=== PATIENT | male | born 1955 | race African-American/Black ===

== ENCOUNTER 2017-08-31 10:19 | Inpatient (IN) | payer MEDICAID ==
[~2017-08-31] VITALS: Ht 177.8 cm; Wt 86.2 kg
[2017-08-31 10:19] VITALS: BP 146/69
[~2017-08-31 10:19] MED LIST: ABILIFY2 MG ORAL; ALBUTEROL2.5 MG/3 M INH; ASPIR 8181 MG ORAL; ATORVASTATIN CA10 MG ORAL; METOPROLOL TART25 MG ORAL
--- NOTE | 2017-08-31 10:26 | Emergency Room Report ---
History of Present Illness General Chief Complaint: Abdominal Pain Source: Patient, Medical Record Present Illness HPI Patient is a 62-year-old male presented after increased low normal pain. Patient gradual onset of symptoms. He reportedly was having onset of pain with associated hematemesis. Patient states he previously had been taking for tonics. He had recently finished antibiotics for urinary infection. He reports having sharp pain to the left lower abdomen. The patient states that he takes aspirin for a prior DVT in his leg. Allergies: Coded Allergies: No Known Allergies (Unverified , 08/31/17) Patient History Past Medical History: see triage record Reviewed Nursing Documentation: PMH: Agreed, PSxH: Agreed Nursing Documentation-PMH Past Medical History: No History, Except For Hx Hypertension: Yes Hx Asthma: Yes History Of Psychiatric Problem: Yes - anxiety Review of Systems All Other Systems: negative except mentioned in HPI Physical Exam Vital Signs Date Time Temp Pulse Resp B/P (MAP) Pulse Ox O2 Delivery O2 Flow Rate FiO2 08/31/17 10:11 98.4 74 18 131/76 98 Room Air Sp02 EP Interpretation: reviewed, normal General Appearance: normal inspection, well appearing, no apparent distress, alert, GCS 15 Head: atraumatic ENT: normal ENT inspection, hearing grossly normal, normal voice Neck: normal inspection, full range of motion, supple, no bony tend Respiratory: normal inspection, lungs clear, normal breath sounds, no respiratory distress, no retraction, no wheezing Cardiovascular #1: regular rate, rhythm, no edema Gastrointestinal: normal inspection, normal bowel sounds, soft, no guarding, no hernia, tenderness - left lower quadrant Genitourinary: no CVA tenderness Musculoskeletal: normal inspection, back normal, normal range of motion Neurologic: normal inspection, alert, oriented x3, responsive, developmental writing instructor III-XII nml as tested, speech normal Psychiatric: normal inspection, judgement/insight normal, mood/affect normal Skin: normal inspection, normal color, no rash Medical Decision Making Diagnostic Impression: Primary Impression: Abdominal pain Additional Impressions: Substance abuse Hematemesis Bilateral inguinal hernia ER Course Patient presented for abdominal pain. Differential diagnoses included ischemic bowel, appendicitis, perforated viscus, abdominal aortic aneurysm, inferior myocardial infarction, viral gastroenteritis Because of complexity of patient's case laboratory testing and imaging studies were ordered.I laboratory testing was unremarkable. Patient was given IV Protonix as well as IV Ativan. A urine drug screen was positive for cocaine. The patient was discussed with Dr. Franky Marie who is covering for Dr. Carrillo for inpatient management.A CT abdomen pelvis read by radiology and small hiatal hernia gallbladder and spleen are unremarkable there were small inguinal hernias containing only fat Labs Test 08/31/17 09:45 08/31/17 10:20 Urine Color Yellow Urine Appearance Clear Urine pH 6 (4.5-8.0) Urine Specific [place] 1.020 (1.005-1.035) Urine Protein 1+ (NEGATIVE) Urine Glucose (UA) Negative (NEGATIVE) Urine Ketones 1+ (NEGATIVE) Urine Occult Blood 1+ (NEGATIVE) Urine Nitrite Negative (NEGATIVE) Urine Bilirubin Negative (NEGATIVE) Urine Urobilinogen Normal MG/DL (0.0-1.0) Urine Leukocyte Esterase Negative (NEGATIVE) Urine RBC 2-4 /HPF (0 - 0) Urine WBC 0-2 /HPF (0 - 0) Urine Squamous Epithelial Cells Occasional /LPF Urine Bacteria Occasional /HPF (NONE) Urine Opiates Screen Negative (NEGATIVE) Urine Barbiturates Screen Negative (NEGATIVE) Phencyclidine (PCP) Screen Negative (NEGATIVE) Urine Amphetamines Screen Negative (NEGATIVE) Urine Benzodiazepines Screen Negative (NEGATIVE) Urine Cocaine Screen Positive (NEGATIVE) Urine Marijuana (THC) Screen Negative (NEGATIVE) White Blood Count 11.0 K/UL (4.8-10.8) Red Blood Count 5.24 M/UL (4.70-6.10) Hemoglobin 16.4 G/DL (14.2-18.0) Hematocrit 47.7 % (42.0-52.0) Mean Corpuscular Volume 91 FL (80-99) Mean Corpuscular Hemoglobin 31.3 PG (27.0-31.0) Mean Corpuscular Hemoglobin Concent 34.4 G/DL (32.0-36.0) Red Cell Distribution Width 11.6 % (11.6-14.8) Platelet Count 195 K/UL (150-450) Mean Platelet Volume 7.3 FL (6.5-10.1) Neutrophils (%) (Auto) 82.4 % (45.0-75.0) Lymphocytes (%) (Auto) 9.8 % (20.0-45.0) Monocytes (%) (Auto) 6.6 % (1.0-10.0) Eosinophils (%) (Auto) 0.1 % (0.0-3.0) Basophils (%) (Auto) 1.2 % (0.0-2.0) Prothrombin Time 10.6 SEC (9.30-11.50) Prothromb Time International Ratio 1.0 (0.9-1.1) Activated Partial Thromboplast Time 23 SEC (23-33) Sodium Level 146 MMOL/L (136-145) Potassium Level 3.8 MMOL/L (3.5-5.1) Chloride Level 109 MMOL/L (98-107) Carbon Dioxide Level 23 MMOL/L (21-32) Anion Gap 14 mmol/L (5-15) Blood Urea Nitrogen 12 mg/dL (7-18) Creatinine 1.3 MG/DL (0.55-1.30) Estimat Glomerular Filtration Rate 55.6 mL/min (>60) Glucose Level 96 MG/DL (74-106) Calcium Level 10.0 MG/DL (8.5-10.1) Total Bilirubin 0.6 MG/DL (0.2-1.0) Aspartate Amino Transf (AST/SGOT) 23 U/L (15-37) Alanine Aminotransferase (ALT/SGPT) 26 U/L (12-78) Alkaline Phosphatase 65 U/L (46-116) Troponin I 0.010 ng/mL (0.000-0.056) Total Protein 8.4 G/DL (6.4-8.2) Albumin 4.5 G/DL (3.4-5.0) Globulin 3.9 g/dL Albumin/Globulin Ratio 1.2 (1.0-2.7) Lipase 109 U/L (73-393) EKG Diagnostic Results Rate: tachycardiac Rhythm: NSR ST Segments: no acute changes ASA given to the pt in ED: No Rhythm Strip Diag. Results EP Interpretation: yes Rhythm: NSR, no PVC's, no ectopy Last Vital Signs Date Time Temp Pulse Resp B/P (MAP) Pulse Ox O2 Delivery O2 Flow Rate FiO2 08/31/17 10:19 91 20 146/69 100 Room Air 08/31/17 10:11 98.4 Status: unchanged Disposition: ADMITTED INPATIENT Condition: Serious Jameel Bridges Aug 31, 2017 10:26
[2017-08-31] MEDS ORDERED: Pantoprazole Inj IV ONE (10:30)
[2017-08-31 10:50] LABS: ANION GAP 14 mmol/L (5-15); CARBON DIOXIDE 23 MMOL/L (21-32); CHLORIDE 109 MMOL/L (98-107); CREATININE 1.3 MG/DL (0.55-1.30); GLOMERULAR FILTRATION RATE 55.6 mL/min (>60); POTASSIUM 3.8 MMOL/L (3.5-5.1); SODIUM 146 MMOL/L (136-145)
[2017-08-31 10:51] LABS: BASOPHILS % (AUTO) 1.2 % (0.0-2.0); EOSINOPHILS % (AUTO) 0.1 % (0.0-3.0); LYMPHOCYTES % (AUTO) 9.8 % (20.0-45.0); MEAN CORPUSCULAR HEMOGLOBIN 31.3 PG (27.0-31.0); MEAN CORPUSCULAR HGB CONC 34.4 G/DL (32.0-36.0); MEAN CORPUSCULAR VOLUME 91 FL (80-99); MEAN PLATELET VOLUME 7.3 FL (6.5-10.1); MONOCYTES % (AUTO) 6.6 % (1.0-10.0); NEUTROPHILS % (AUTO) 82.4 % (45.0-75.0); PLATELET COUNT 195 K/UL (150-450); RED BLOOD COUNT 5.24 M/UL (4.70-6.10); RED CELL DISTRIBUTION WIDTH 11.6 % (11.6-14.8)
[2017-08-31 10:52] LABS: APPEARANCE,URINE CLEAR; KETONES,URINE 1+ (NEGATIVE); LEUKOCYTE ESTERASE ,URINE NEGATIVE (NEGATIVE); NITRITE,URINE NEGATIVE (NEGATIVE); PH,URINE 6 (4.5-8.0); PROTEIN,URINE 1+ (NEGATIVE); UROBILINOGEN,URINE NORMAL MG/DL (0.0-1.0)
[2017-08-31 10:56] LABS: PROTHROMBIN TIME 10.6 SEC (9.30-11.50)
[2017-08-31 10:57] LABS: ALANINE AMINOTRANSFERASE 26 U/L (12-78); ALBUMIN/GLOBULIN RATIO 1.2 (1.0-2.7); ASPARTATE AMINO TRANSFERASE 23 U/L (15-37); LIPASE 109 U/L (73-393); TOTAL PROTEIN 8.4 G/DL (6.4-8.2)
[2017-08-31 11:13] LABS: BACTERIA,URINE OCCASIONAL /HPF; SQUAMOUS EPITHELIAL CELL,UR OCCASIONAL /LPF (NONE/OCC); WBC,URINE 0-2 /HPF (0 - 0)
--- NOTE | 2017-08-31 11:41 | Diagnostic Imaging Report ---
Indication: PAIN Technique: CT scan of the abdomen and pelvis was performed from the diaphragms to the symphysis pubis with intravenous contrast material only per specific request of the ordering physician.. 5 mm sections were generated. Axial, coronal, and sagittal images are presented. Dose: Total Dose Length Product - DLP [address] Dose Index - CTDIvol(s) 13.21 mGy. Automated exposure control was utilized for dose reduction. Comparison: None Findings: There is a small hiatal hernia. The liver is normal. The gallbladder is unremarkable. The spleen is normal. The pancreas is unremarkable. Adrenal glands are normal. The kidneys are unremarkable. Aorta and inferior vena cava are normal caliber. Retroperitoneum is free of adenopathy. The bowel is normal caliber. There is some motion artifact. The appendix is normal. The bladder is unremarkable. Prostate and seminal vesicles are normal. There are small inguinal hernias containing only fat bilaterally. Minimal spurring is noted in the lumbar spine. Impression: Minimal degenerative change of the lumbar spine. Normal appendix. No evidence of urinary calculi. Small hiatal hernia. Otherwise negative. The CT scanner at [facility] is accredited by the [employer] and the scans are performed using protocols designed to limit radiation exposure to as low as reasonably achievable to attain images of sufficient resolution adequate for diagnostic evaluation.
[2017-08-31] MEDS ORDERED: LORazepam Inj 2mg/ml 1ml IV ONE (12:30)
[2017-08-31 14:00] VITALS: BP 109/88
[2017-08-31] MEDS ORDERED: NS 500ML ONE (14:45)
[2017-08-31 15:46] VITALS: BP 127/68
[2017-08-31 16:36] VITALS: BP 124/75
[2017-08-31 20:00] VITALS: BP 112/69
[2017-08-31 20:34] LABS: BASOPHILS % (AUTO) 1.2 % (0.0-2.0); LYMPHOCYTES % (AUTO) 28.5 % (20.0-45.0); MEAN CORPUSCULAR HEMOGLOBIN 31.4 PG (27.0-31.0); MEAN CORPUSCULAR HGB CONC 34.2 G/DL (32.0-36.0); MEAN CORPUSCULAR VOLUME 92 FL (80-99); MEAN PLATELET VOLUME 6.5 FL (6.5-10.1); MONOCYTES % (AUTO) 9.2 % (1.0-10.0); NEUTROPHILS % (AUTO) 59.1 % (45.0-75.0); PLATELET COUNT 144 K/UL (150-450); RED CELL DISTRIBUTION WIDTH 11.7 % (11.6-14.8); WHITE BLOOD COUNT 8.6 K/UL (4.8-10.8)
[2017-09-01] VITALS: BP 128/70
[2017-09-01 04:00] VITALS: BP 124/76
[2017-09-01 04:45] LABS: BASOPHILS % (AUTO) 1.1 % (0.0-2.0); EOSINOPHILS % (AUTO) 3.3 % (0.0-3.0); LYMPHOCYTES % (AUTO) 36.9 % (20.0-45.0); MEAN CORPUSCULAR HEMOGLOBIN 32.5 PG (27.0-31.0); MEAN CORPUSCULAR HGB CONC 35.3 G/DL (32.0-36.0); MEAN CORPUSCULAR VOLUME 92 FL (80-99); MEAN PLATELET VOLUME 7.5 FL (6.5-10.1); MONOCYTES % (AUTO) 9.8 % (1.0-10.0); NEUTROPHILS % (AUTO) 48.9 % (45.0-75.0); PLATELET COUNT 154 K/UL (150-450); RED BLOOD COUNT 4.51 M/UL (4.70-6.10); WHITE BLOOD COUNT 5.7 K/UL (4.8-10.8)
[2017-09-01 08:01] VITALS: BP 123/69
[2017-09-01] MEDS: Pantoprazole Inj IVP SCH (08:45)
[2017-09-01 09:46] LABS: ALANINE AMINOTRANSFERASE 23 U/L (12-78); ALBUMIN/GLOBULIN RATIO 1.2 (1.0-2.7); ANION GAP 9 mmol/L (5-15); ASPARTATE AMINO TRANSFERASE 21 U/L (15-37); CALCIUM 8.7 MG/DL (8.5-10.1); CARBON DIOXIDE 25 MMOL/L (21-32); CHLORIDE 112 MMOL/L (98-107); CREATININE 1.2 MG/DL (0.55-1.30); GLOMERULAR FILTRATION RATE > 60 mL/min (>60); POTASSIUM 3.8 MMOL/L (3.5-5.1); SODIUM 146 MMOL/L (136-145); TOTAL PROTEIN 6.3 G/DL (6.4-8.2)
[2017-09-01 11:28] VITALS: BP 125/74
[2017-09-01 12:19] LABS: BASOPHILS % (AUTO) 1.4 % (0.0-2.0); LYMPHOCYTES % (AUTO) 35.5 % (20.0-45.0); MEAN CORPUSCULAR HEMOGLOBIN 31.9 PG (27.0-31.0); MEAN CORPUSCULAR HGB CONC 34.4 G/DL (32.0-36.0); MEAN CORPUSCULAR VOLUME 93 FL (80-99); MEAN PLATELET VOLUME 6.9 FL (6.5-10.1); MONOCYTES % (AUTO) 8.9 % (1.0-10.0); NEUTROPHILS % (AUTO) 50.2 % (45.0-75.0); PLATELET COUNT 125 K/UL (150-450); RED BLOOD COUNT 4.47 M/UL (4.70-6.10); RED CELL DISTRIBUTION WIDTH 11.9 % (11.6-14.8); WHITE BLOOD COUNT 4.6 K/UL (4.8-10.8)
--- NOTE | 2017-09-01 15:11 | Cardiology Progress Note ---
Assessment/Plan Assessment/Plan marilu mobitz 1 2nd degree hyperlipidemai nause and vomit watch on tele keep off neg chronotropic agenst for nwo tfts anti emetics [id number] Objective Last 24 Hour Vital Signs Date Time Temp Pulse Resp B/P (MAP) Pulse Ox O2 Delivery O2 Flow Rate FiO2 09/01/17 12:00 49 09/01/17 11:28 97.2 51 20 125/74 100 Nasal Cannula 2.0 09/01/17 08:01 97.5 59 20 123/69 100 Nasal Cannula 2.0 09/01/17 08:00 56 09/01/17 04:10 100 Nasal Cannula 2.0 09/01/17 04:02 55 09/01/17 04:00 97.3 54 20 124/76 100 Nasal Cannula 09/01/17 00:05 99 Nasal Cannula 2.0 09/01/17 00:00 97.5 70 20 128/70 Nasal Cannula 08/31/17 23:34 58 08/31/17 20:10 99 Nasal Cannula 2.0 08/31/17 20:00 97.5 66 18 112/69 100 Nasal Cannula 2.0 08/31/17 19:53 48 08/31/17 16:58 56 08/31/17 16:36 97.9 63 20 124/75 97 Room Air 08/31/17 16:00 98.4 60 15 127/68 100 Room Air 08/31/17 15:46 60 15 127/68 100 Room Air Intake and Output 09/01/17 09/02/17 19:00 07:00 Intake Total 1825 ml Output Total 600 ml Balance 1225 ml Intake Oral 1250 ml IV Total 575 ml Output Urine Total 600 ml Laboratory Tests Test 08/31/17 20:15 09/01/17 04:00 09/01/17 12:05 09/01/17 13:30 White Blood Count 8.6 K/UL (4.8-10.8) 5.7 K/UL (4.8-10.8) 4.6 K/UL (4.8-10.8) L Red Blood Count 4.30 M/UL (4.70-6.10) L 4.51 M/UL (4.70-6.10) L 4.47 M/UL (4.70-6.10) L Hemoglobin 13.5 G/DL (14.2-18.0) L 14.7 G/DL (14.2-18.0) 14.3 G/DL (14.2-18.0) Hematocrit 39.4 % (42.0-52.0) L 41.6 % (42.0-52.0) L 41.5 % (42.0-52.0) L Mean Corpuscular Volume 92 FL (80-99) 92 FL (80-99) 93 FL (80-99) Mean Corpuscular Hemoglobin 31.4 PG (27.0-31.0) H 32.5 PG (27.0-31.0) H 31.9 PG (27.0-31.0) H Mean Corpuscular Hemoglobin Concent 34.2 G/DL (32.0-36.0) 35.3 G/DL (32.0-36.0) 34.4 G/DL (32.0-36.0) Red Cell Distribution Width 11.7 % (11.6-14.8) 12.0 % (11.6-14.8) 11.9 % (11.6-14.8) Platelet Count 144 K/UL (150-450) L 154 K/UL (150-450) 125 K/UL (150-450) L Mean Platelet Volume 6.5 FL (6.5-10.1) 7.5 FL (6.5-10.1) 6.9 FL (6.5-10.1) Neutrophils (%) (Auto) 59.1 % (45.0-75.0) 48.9 % (45.0-75.0) 50.2 % (45.0-75.0) Lymphocytes (%) (Auto) 28.5 % (20.0-45.0) 36.9 % (20.0-45.0) 35.5 % (20.0-45.0) Monocytes (%) (Auto) 9.2 % (1.0-10.0) 9.8 % (1.0-10.0) 8.9 % (1.0-10.0) Eosinophils (%) (Auto) 2.0 % (0.0-3.0) 3.3 % (0.0-3.0) H 4.0 % (0.0-3.0) H Basophils (%) (Auto) 1.2 % (0.0-2.0) 1.1 % (0.0-2.0) 1.4 % (0.0-2.0) Sodium Level 146 MMOL/L (136-145) H Potassium Level 3.8 MMOL/L (3.5-5.1) Chloride Level 112 MMOL/L (98-107) H Carbon Dioxide Level 25 MMOL/L (21-32) Anion Gap 9 mmol/L (5-15) Blood Urea Nitrogen 12 mg/dL (7-18) Creatinine 1.2 MG/DL (0.55-1.30) Estimat Glomerular Filtration Rate > 60 mL/min (>60) Glucose Level 74 MG/DL (74-106) Calcium Level 8.7 MG/DL (8.5-10.1) Total Bilirubin 0.5 MG/DL (0.2-1.0) Aspartate Amino Transf (AST/SGOT) 21 U/L (15-37) Alanine Aminotransferase (ALT/SGPT) 23 U/L (12-78) Alkaline Phosphatase 52 U/L (46-116) Total Protein 6.3 G/DL (6.4-8.2) L Albumin 3.5 G/DL (3.4-5.0) Globulin 2.8 g/dL Albumin/Globulin Ratio 1.2 (1.0-2.7) Stool Occult Blood Pending ELLIE CADE Sep 01, 2017 15:11
--- NOTE | 2017-09-01 15:26 | Cardiology Report ---
APPROVED REPORT EXAM: Two-dimensional and M-mode echocardiogram with Doppler and color Doppler. INDICATION 2nd degree heart block M-Mode DIMENSIONS IVSd1.6 (0.7-1.1cm)Left Atrium (MM)3.9 (1.6-4.0cm) LVDd3.9 (3.5-5.6cm)Aortic Root3.3 (2.0-3.7cm) PWd1.3 (0.7-1.1cm)Aortic Cusp Exc.2.0 (1.5-2.0cm) LVDs1.9 (2.5-4.0cm) PWs1.8 cm Technically difficult study due to patients position. Normal left ventricular chamber size, systolic function and wall motion to extent visualized. Left ventricular ejection fraction estimated to be 55-60%. Mild left ventricular hypertrophy. Anterior Echo-free space, may be due to pericardial fat or effusion. All other cardiac chamber sizes are within normal limits. Mild focal aortic valve sclerosis with adequate cusp excursion. Mildly thickened mitral valve leaflets with normal excursion. Mild mitral annulus and aortic root calcification. Normal pulmonic valve structure. Normal tricuspid valve structure. IVC measured at 2.2 cm with physiologic collapse. A color flow and spectral Doppler study was performed and revealed: Trace aortic regurgitation. Trace mitral regurgitation. Mitral diastolic velocities are normal Trace to mild tricuspid regurgitation. Tricuspid systolic velocities suggests peak right ventricular systolic pressure of 33 mmHg. Mild pulmonic regurgitation present.
[2017-09-01 15:37] VITALS: BP 108/69
--- NOTE | 2017-09-01 16:30 | History and Physical Report ---
DATE OF ADMISSION: 08/31/2017 CHIEF COMPLAINT: Hematemesis. HISTORY OF PRESENT ILLNESS: The patient is a 62-year-old male. He has a history of GERD, presented with complaints of vomiting of blood. According to the patient, he had 3 episodes where he vomited small amounts of blood. He presented to the emergency room. On evaluation there, his initial hemoglobin was stable. He was also noted that to be bradycardic, and while on the monitor here, he has had several episodes of secondary heart block type 1. The patient denies prior history of any heart problems. PAST MEDICAL HISTORY: As above. PAST SURGICAL HISTORY: None. CURRENT MEDICATIONS: Reviewed. ALLERGIES: None. FAMILY HISTORY: Significant for prostate and colon problems and diabetes. REVIEW OF SYSTEMS: Negative except for vomiting some blood. PHYSICAL EXAMINATION: VITAL SIGNS: Temperature 97.5 degrees, pulse 60, respirations 20, and blood pressure 123/69. GENERAL: The patient is well-developed, no apparent distress. HEART: Regular rate and rhythm. LUNGS: Lungs are clear. ABDOMEN: Soft, nontender, and nondistended. EXTREMITIES: Without clubbing or cyanosis. LABORATORY DATA: UA was clear. Hemoglobin was initially 16, now 15. Platelets were normal. Coags normal. Sodium 146, and potassium 3.8. Troponin was negative. UA was clear. Tox screen was positive for cocaine. EKG showed secondary heart block type 1. ASSESSMENT: This is a pleasant male admitted with complaints of possible gastrointestinal bleed: 1. Questionable gastrointestinal bleed. Hemoglobin is stable. 2. The patient is a drinker. 3. He has history of gastroesophageal reflux disease, but appears stable. 4. Bradycardia, rule out conduction system disease. PLANS: Monitor on telemetry. Serial CBCs. PPI treatment. Gastrointestinal and Cardiology consultations. We will check stool for occult blood. Franky Marie M.D. DR: CHERELLE JOB#: [id number] CC:
--- NOTE | 2017-09-01 17:15 | Consultation ---
DATE OF CONSULTATION: 09/01/2017 CARDIOLOGY CONSULTATION CONSULTING PHYSICIAN: Dmitry Zhang M.D. REFERRING PHYSICIAN: Franky Marie M.D. This consultation is for Dr. Jacinto Grimaldo who is not available today. HISTORY OF PRESENT ILLNESS: The patient is a 62-year-old gentleman who tells me he was in a restaurant and he started getting nauseated and vomited a couple of times and subsequently developed some lower quadrant abdominal pain and low back pain, and tried to get up after the vomiting and felt woozy and fell down to the floor. Paramedics were summoned. The block and case maker run sheet is now reviewed, indicates that the patient was noted to have initial blood pressure of 138/85 with a heart rate of 105 and subsequently 141/94 with a heart rate of 94. EKG was done, was negative. The patient denied any chest pain. They found him lying on the floor complaining of abdominal pain. No vomiting. He was brought to the emergency room at [facility] and subsequently admitted to the hospital. After hospitalization, he has had some episodes of bradycardia, Mobitz I second-degree, and this consultation requested. He never passed out except for this episode of near syncope after he vomited. He has not had any heart problems, although he is followed by a blind lacer on a regular basis apparently for some reason and nothing abnormal was apparently found. He does have a bit of hyperlipidemia, which he takes medications for and he usually has has some high blood pressure, but he stopped taking medication for that approximately six months ago. Apparently, he is on some kind of a small tablet that he was taking at that time. He does not have any chest pain. He is not short of breath at this time. There is no PND. There is no orthopnea. Usually does not get dizzy or lightheaded when he sits up and stands up. No palpitations. PAST MEDICAL HISTORY: Positive for high cholesterol. He denies any diabetes or high blood pressure. No heart attack. No cancer. No stroke. No hepatitis or tuberculosis. He does have history of asthma. No ulcers. No kidney problems, liver problems, thyroid problems, anemia, arthritis, or HIV. He does have a history of DVT, for which he was on anticoagulation for approximately two years and was discontinued approximately six months ago and has been on aspirin since. He denies any heart problems otherwise. MEDICATIONS: The patient states that he is on following medications. Protonix, Lipitor, aspirin 325 mg, and [place]. He denies taking any metoprolol recently. SOCIAL HISTORY: He used to smoke, drink, and use drugs. He used cocaine a few days ago. He used to smoke one pack of cigarettes per day, now decreased. Alcohol intake, he used to be heavy, now better as well. He is retired. REVIEW OF SYSTEMS: GASTROINTESTINAL: Nausea and vomiting as mentioned. No bloody or black stools. GENITOURINARY: Negative. PULMONARY: Negative. CONSTITUTIONAL: Negative. NEUROLOGIC: Negative. PHYSICAL EXAMINATION: GENERAL: Physical examination shows him to be a middle-aged gentleman, in no respiratory distress. NECK: Supple. No jugular venous distention. LUNGS: Clear to auscultation and percussion. CARDIAC: Regular rate and rhythm. No heaves, thrills, gallops, or rubs are noted. ABDOMEN: Soft and nontender. Positive bowel sounds. EXTREMITIES: There is no clubbing, cyanosis, nor is there any edema. NEUROLOGIC: He is awake, alert, responsive, in no apparent respiratory distress. LABORATORY AND DIAGNOSTIC DATA: White count of 4.6 with a hemoglobin of 14.3 and platelet count of 125. Initially when he came in, he had a hemoglobin of 16.4 and platelet count of 195. Sodium is 146, potassium 3.8, chloride 112, bicarbonate 25, BUN of 12, creatinine 1.2, and glucose of 74. Liver function tests are all normal. Troponin one set was negative. INR is 1. PTT of 23. Urinalysis 2 to 4 RBCs, 0 to 2 WBCs. Toxicology screen positive for cocaine. His blood pressure is anywhere between 109/88 to 146/69, most recently 125/74. His electrocardiogram shows sinus rhythm, normal QRS axis, Mobitz 1 second-degree AV block is noted with occasional missed beat. This is the pattern that has been on two EKGs. He has some early repolarization changes on his EKG and he has had telemetry that shows evidence of AV block. An echocardiogram preliminary report shows ejection fraction of 55%, technically difficult study, mild diastolic relaxation abnormality. ASSESSMENT: 1. Nausea and vomiting. 2. Bradycardia with Mobitz I second-degree AV block. 3. Hyperlipidemia history. 4. Asthma history. 5. History of deep venous thrombosis. This patient was seen in cardiac consultation in view of Dr. Grimaldo who will be back after the weekend. The patient does not have any signs or symptoms associated with bradycardia at the present time. We will be keeping him off from negative chronotropic agents at this time and manage any nausea or vomiting with antiemetics and keep him on telemetry to see if he has any further episodes of pauses or any further progression of bradycardia that necessitate further evaluation. Dmitry Zhang M.D. DR: Orestes JOB#: [id number] CC:
[2017-09-01 20:12] VITALS: BP 108/56
[2017-09-02 00:19] VITALS: BP 118/70
[2017-09-02 04:42] VITALS: BP 121/68
[2017-09-02 08:00] VITALS: BP 122/66
[2017-09-02] MEDS: Pantoprazole Inj IVP SCH (08:50)
--- NOTE | 2017-09-02 11:32 | General Progress Note ---
Assessment/Plan Problem List: (1) Bradycardia ICD Codes: R00.1 - Bradycardia, unspecified SNOMED: 10268671 (2) Substance abuse ICD Codes: F19.10 - Other psychoactive substance abuse, uncomplicated SNOMED: 80809232 (3) Abdominal pain ICD Codes: R10.9 - Unspecified abdominal pain SNOMED: 08039505 Status: stable Assessment/Plan monitor hr/tele bp rx PPI stool ob Subjective ROS Limited/Unobtainable: No Constitutional: Reports: malaise, weakness HEENT: Reports: no symptoms Cardiovascular: Reports: no symptoms Respiratory: Reports: no symptoms Gastrointestinal/Abdominal: Reports: no symptoms Genitourinary: Reports: no symptoms Neurologic/Psychiatric: Reports: no symptoms Endocrine: Reports: no symptoms Hematologic/Lymphatic: Reports: no symptoms Allergies: Coded Allergies: No Known Allergies (Unverified , 08/31/17) All Systems: reviewed and negative except above Subjective still with bradycardia. cards appreciated. no new complaints. Objective Last 24 Hour Vital Signs Date Time Temp Pulse Resp B/P (MAP) Pulse Ox O2 Delivery O2 Flow Rate FiO2 09/02/17 08:00 69 09/02/17 08:00 97.0 58 20 122/66 98 Nasal Cannula 2.0 09/02/17 04:42 97.2 56 18 121/68 95 Nasal Cannula 09/02/17 04:00 60 09/02/17 00:19 96.4 64 18 118/70 94 Room Air 09/02/17 00:00 48 09/01/17 20:12 97.9 59 18 108/56 98 Room Air 09/01/17 20:00 43 09/01/17 19:43 Nasal Cannula 2.0 28 09/01/17 19:43 98 Nasal Cannula 2.0 28 09/01/17 17:28 97.7 09/01/17 16:00 49 09/01/17 15:37 97.7 52 20 108/69 95 09/01/17 12:00 49 Intake and Output 09/02/17 09/03/17 19:00 07:00 Intake Total 200 ml Output Total 700 ml Balance -500 ml IV Total 200 ml Output Urine Total 700 ml Laboratory Tests 09/01/17 12:05: White Blood Count 4.6L, Red Blood Count 4.47L, Hemoglobin 14.3, Hematocrit 41.5L , Mean Corpuscular Volume 93, Mean Corpuscular Hemoglobin 31.9H, Mean Corpuscular Hemoglobin Concent 34.4, Red Cell Distribution Width 11.9, Platelet Count 125L, Mean Platelet Volume 6.9, Neutrophils (%) (Auto) 50.2, Lymphocytes ( %) (Auto) 35.5, Monocytes (%) (Auto) 8.9, Eosinophils (%) (Auto) 4.0H, Basophils (%) (Auto) 1.4 09/01/17 13:30: Stool Occult Blood Negative 09/02/17 07:00: Troponin I 0.011, Thyroid Stimulating Hormone (TSH) 0.960 Height (Feet): 5 Height (Inches): 10.00 Weight (Pounds): 190 Objective GENERAL: The patient is well-developed, no apparent distress. HEART: Regular rate and rhythm. LUNGS: Lungs are clear. ABDOMEN: Soft, nontender, and nondistended. EXTREMITIES: Without clubbing or cyanosis. ADRIANA LUX Sep 02, 2017 11:32
[2017-09-02 12:00] VITALS: BP 128/77
[2017-09-02] MEDS: Norco 5mg/325mg tab ORAL PRN (14:50)
[2017-09-02 16:00] VITALS: BP 138/75
--- NOTE | 2017-09-02 16:02 | Cardiology Progress Note ---
Assessment/Plan Assessment/Plan 1. Nausea and vomiting. 2. Bradycardia with Mobitz I second-degree AV block. 3. Hyperlipidemia history. 4. Asthma history. 5. History of deep venous thrombosis. izabella less frequent mobitz 1 will need orthostatic vital ordered not yet performed echo normal systolic function may need neuro evalution as well Subjective Cardiovascular: Reports: lightheadedness, Denies: chest pain, irregular heart rate Respiratory: Denies: shortness of breath Gastrointestinal/Abdominal: Denies: abdominal pain Genitourinary: Denies: burning Subjective has dizziness on standing but not seem light headed ? off balance Objective Last 24 Hour Vital Signs Date Time Temp Pulse Resp B/P (MAP) Pulse Ox O2 Delivery O2 Flow Rate FiO2 09/02/17 12:00 97.5 57 20 128/77 99 Nasal Cannula 2.0 09/02/17 12:00 57 09/02/17 08:00 69 09/02/17 08:00 97.0 58 20 122/66 98 Nasal Cannula 2.0 09/02/17 04:42 97.2 56 18 121/68 95 Nasal Cannula 09/02/17 04:00 60 09/02/17 00:19 96.4 64 18 118/70 94 Room Air 09/02/17 00:00 48 09/01/17 20:12 97.9 59 18 108/56 98 Room Air 09/01/17 20:00 43 09/01/17 19:43 Nasal Cannula 2.0 28 09/01/17 19:43 98 Nasal Cannula 2.0 28 09/01/17 17:28 97.7 General Appearance: alert Neck: supple Cardiovascular: normal rate, regular rhythm Respiratory/Chest: lungs clear, normal breath sounds Abdomen: normal bowel sounds, non tender, soft Extremities: no swelling Intake and Output 09/02/17 09/03/17 19:00 07:00 Intake Total 600 ml Output Total 1450 ml Balance -850 ml IV Total 600 ml Output Urine Total 1450 ml Laboratory Tests Test 09/02/17 07:00 Troponin I 0.011 ng/mL (0.000-0.056) Thyroid Stimulating Hormone (TSH) 0.960 uiU/mL (0.358-3.740) ELLIE CADE Sep 02, 2017 16:02
[2017-09-02 20:00] VITALS: BP 127/73
[2017-09-03] VITALS: BP 120/74
[2017-09-03 04:00] VITALS: BP 134/75
[2017-09-03 08:00] VITALS: BP 128/76
[2017-09-03] MEDS: Norco 5mg/325mg tab ORAL PRN (08:36)
[2017-09-03] MEDS: Pantoprazole Inj IVP SCH (08:37)
[2017-09-03 12:00] VITALS: BP 129/68
--- NOTE | 2017-09-03 12:55 | General Progress Note ---
Assessment/Plan Problem List: (1) Bradycardia ICD Codes: R00.1 - Bradycardia, unspecified SNOMED: 32230824 (2) Substance abuse ICD Codes: F19.10 - Other psychoactive substance abuse, uncomplicated SNOMED: 87664654 (3) Abdominal pain ICD Codes: R10.9 - Unspecified abdominal pain SNOMED: 07968688 Status: stable, progressing Assessment/Plan monitor hr/tele bp rx PPI stool ob is negative ?neuro eval- will d/w cards advance diet Subjective ROS Limited/Unobtainable: No Constitutional: Reports: malaise, weakness HEENT: Reports: no symptoms Cardiovascular: Reports: no symptoms Respiratory: Reports: cough Gastrointestinal/Abdominal: Reports: no symptoms Genitourinary: Reports: no symptoms Neurologic/Psychiatric: Reports: no symptoms Endocrine: Reports: no symptoms Hematologic/Lymphatic: Reports: no symptoms Allergies: Coded Allergies: No Known Allergies (Unverified , 08/31/17) All Systems: reviewed and negative except above Subjective no complaints. nausea better. wants to advance diet. cards input appreciated. Objective Last 24 Hour Vital Signs Date Time Temp Pulse Resp B/P (MAP) Pulse Ox O2 Delivery O2 Flow Rate FiO2 09/03/17 09:06 58 56 68 09/03/17 08:00 66 09/03/17 08:00 98.3 58 20 128/76 97 Nasal Cannula 2.0 09/03/17 04:00 49 09/03/17 04:00 98.2 58 20 134/75 100 Nasal Cannula 2.0 28 09/03/17 00:00 57 09/03/17 00:00 97.9 59 18 120/74 98 09/03/17 00:00 Nasal Cannula 2.0 09/02/17 21:41 98 Nasal Cannula 2.0 28 09/02/17 21:41 Nasal Cannula 2.0 28 09/02/17 20:00 97.5 54 20 127/73 99 Nasal Cannula 2.0 09/02/17 20:00 Nasal Cannula 2.0 09/02/17 20:00 51 09/02/17 16:00 97.7 60 20 138/75 98 Nasal Cannula 2.0 09/02/17 16:00 50 Intake and Output 09/03/17 09/04/17 19:00 07:00 Intake Total 740 ml Output Total 600 ml Balance 140 ml Intake Oral 240 ml IV Total 500 ml Output Urine Total 600 ml Height (Feet): 5 Height (Inches): 10.00 Weight (Pounds): 190 Objective GENERAL: The patient is well-developed, no apparent distress. HEART: Regular rate and rhythm. LUNGS: Lungs are clear. ABDOMEN: Soft, nontender, and nondistended. EXTREMITIES: Without clubbing or cyanosis. ADRIANA LUX Sep 03, 2017 12:55
--- NOTE | 2017-09-03 14:25 | Cardiology Progress Note ---
Assessment/Plan Assessment/Plan 1. Nausea and vomitin resolved 2. Bradycardia with Mobitz I second-degree AV block. 3. Hyperlipidemia history. 4. Asthma history. 5. History of deep venous thrombosis. has infrequent mobitz 1 still orthostatic vitals neg echo normal systolic function dizziness has resolved will need fu outpt with dr weiss Subjective Cardiovascular: Denies: chest pain, irregular heart rate, lightheadedness Respiratory: Denies: shortness of breath Gastrointestinal/Abdominal: Denies: abdominal pain Genitourinary: Denies: burning Subjective did not have dizzines on standing today walked to br Objective Last 24 Hour Vital Signs Date Time Temp Pulse Resp B/P (MAP) Pulse Ox O2 Delivery O2 Flow Rate FiO2 09/03/17 12:00 98.0 58 20 129/68 98 Nasal Cannula 2.0 09/03/17 12:00 52 09/03/17 09:06 58 56 68 09/03/17 08:00 66 09/03/17 08:00 98.3 58 20 128/76 97 Nasal Cannula 2.0 09/03/17 04:00 49 09/03/17 04:00 98.2 58 20 134/75 100 Nasal Cannula 2.0 28 09/03/17 00:00 57 09/03/17 00:00 97.9 59 18 120/74 98 09/03/17 00:00 Nasal Cannula 2.0 09/02/17 21:41 98 Nasal Cannula 2.0 28 09/02/17 21:41 Nasal Cannula 2.0 28 09/02/17 20:00 97.5 54 20 127/73 99 Nasal Cannula 2.0 09/02/17 20:00 Nasal Cannula 2.0 09/02/17 20:00 51 09/02/17 16:00 97.7 60 20 138/75 98 Nasal Cannula 2.0 09/02/17 16:00 50 General Appearance: no apparent distress, alert Neck: supple Cardiovascular: normal rate, regular rhythm Respiratory/Chest: lungs clear, normal breath sounds Abdomen: normal bowel sounds, non tender, soft Extremities: no swelling Intake and Output 09/03/17 09/04/17 19:00 07:00 Intake Total 1180 ml Output Total 1400 ml Balance -220 ml Intake Oral 480 ml IV Total 700 ml Output Urine Total 1400 ml ELLIE CADE Sep 03, 2017 14:25
--- NOTE | 2017-09-03 15:31 | Cardiology Report ---
APPROVED REPORT EKG Measurement Heart [id number] DE 256P44 [id number] JEs710 Brian 1 second degree av block Nonspecific ST and T wave abnormality Abnormal ECG
--- NOTE | 2017-09-03 15:39 | Cardiology Report ---
APPROVED REPORT EKG Measurement Heart [id number] GA 232P57 [id number] [id number] Sinus rhythm with 1st degree AV block Nonspecific ST and T wave abnormality Abnormal ECG
[2017-09-03 16:00] VITALS: BP 133/74
[2017-09-03] MEDS ORDERED: NS 500ML ONE (16:09)
[2017-09-03 20:13] VITALS: BP 124/57
[2017-09-04] VITALS: BP 127/73
[2017-09-04 04:00] VITALS: BP 118/68
[2017-09-04 07:47] VITALS: BP 122/68
[2017-09-04] MEDS: Pantoprazole Inj IVP SCH (07:59)
--- NOTE | 2017-09-04 09:28 | Pulmonology Progress Note ---
Assessment/Plan Assessment/Plan Assessment/Plan 1. Nausea and vomiting resolved 2. Bradycardia with Mobitz I second-degree AV block. 3. Hyperlipidemia history. 4. Asthma history. 5. History of deep venous thrombosis. has infrequent mobitz 1 still orthostatic vitals neg echo normal systolic function dizziness has resolved will need fu outpt with cardiology Subjective Interval Events: No further symptoms; HR 56/min Constitutional: Reports: no symptoms HEENT: Repors: no symptoms Respiratory: Reports: no symptoms Cardiovascular: Reports: no symptoms Gastrointestinal/Abdominal: Reports: no symptoms Genitourinary: Reports: no symptoms Neurologic: Reports: no symptoms Allergies: Coded Allergies: No Known Allergies (Unverified , 08/31/17) Objective Last 24 Hour Vital Signs Date Time Temp Pulse Resp B/P (MAP) Pulse Ox O2 Delivery O2 Flow Rate FiO2 09/04/17 07:47 98.1 65 20 122/68 100 Room Air 09/04/17 04:00 46 09/04/17 04:00 97.5 57 20 118/68 95 Nasal Cannula 2.0 09/04/17 00:10 20 98 Nasal Cannula 2.0 09/04/17 00:00 97.7 55 19 127/73 98 Nasal Cannula 2.0 09/04/17 00:00 51 09/03/17 20:13 97.7 55 20 124/57 99 Nasal Cannula 2.0 09/03/17 20:00 44 09/03/17 20:00 18 97 Nasal Cannula 2.0 09/03/17 19:30 Nasal Cannula 2.0 28 09/03/17 19:30 98 Nasal Cannula 2.0 28 09/03/17 16:00 50 09/03/17 16:00 97.9 52 20 133/74 95 Nasal Cannula 2.0 09/03/17 12:00 98.0 58 20 129/68 98 Nasal Cannula 2.0 09/03/17 12:00 52 General Appearance: no acute distress HEENT: normocephalic Respiratory/Chest: chest wall non-tender Cardiovascular: normal peripheral pulses, bradycardia Abdomen: normal bowel sounds, soft, non tender Current Medications Medications (Trade) Dose Ordered Sig/Branden Route PRN Reason Start Time Stop Time Status Last Admin Dose Admin Acetaminophen (Tylenol) 650 mg Q4H PRN ORAL Mild Pain/Temp > 100.5 08/31/17 17:00 09/30/17 16:59 09/01/17 16:29 Acetaminophen/ Hydrocodone Bitart (Elrama 5/325) 1 tab Q6H PRN ORAL PAIN 4-10 09/02/17 14:45 09/09/17 14:44 09/03/17 08:36 Ondansetron HCl (Zofran) 4 mg Q6H PRN IVP Nausea & Vomiting 08/31/17 17:00 09/30/17 16:59 09/01/17 04:45 Pantoprazole (Protonix) 40 mg DAILY IVP 09/01/17 09:00 10/01/17 08:59 09/04/17 07:59 Storm Carrillo MD Sep 04, 2017 09:28
--- NOTE | 2017-09-05 08:47 | Discharge Summary ---
Discharge Summary Hospital Course Date of Admission Sep 02, 2017 at 08:09 Date of Discharge Sep 04, 2017 at 11:00 Admitting Diagnosis abdominal pain, hematemesis HPI Jimbo Reveles is a 62 year old male who was admitted on Sep 02, 2017 at 08:09 for Abdominal Pain,Hematemesis Hospital Course dc summary #[id number] Discharge Medications Continued Medications: Albuterol Sulfate* (Albuterol Sulfate Hhn*) 2.5 Mg/3 Ml Vial.neb 3 ML INH Q4H PRN for Shortness of Breath, EA Aripiprazole* (Abilify*) 2 Mg Tablet 2 MG ORAL DAILY, TAB Aspirin* (Aspir 81*) 81 Mg Tablet.dr 81 MG ORAL DAILY, TAB Atorvastatin Calcium* (Lipitor*) 10 Mg Tablet 10 MG ORAL BEDTIME, TAB Discontinued Medications: Metoprolol Tartrate* (Metoprolol Tartrate*) 25 Mg Tablet 25 MG ORAL EVERY 12 HOURS, TAB Discharge Condition Upon Discharge: stable Discharge Disposition Patient was discharged to Home (01) Discharge Diagnoses: Discharge Instructions Discharge Instructions Special Instructions I have been assigned to complete a D/C Summary on this account. I was not involved in the patient management Glenn RossiNohemi lane NP Sep 05, 2017 08:47
--- NOTE | 2017-09-05 17:30 | Discharge Summary 2 SIG ---
DATE OF ADMISSION: 09/02/2017 DATE OF DISCHARGE: 09/04/2017 REASON FOR ADMISSION: 62-year-old male with a history of gastroesophageal reflux disease, hypertension, asthma, and alcohol abuse, presented to emergency department with intractable nausea, vomiting, and hematemesis, but hemoglobin and hematocrit were stable. Upon evaluation in the emergency room, the patient also was found to have bradycardia. Laboratory workup revealed mild leukocytosis -11. Renal parameters were stable. Troponin was negative. CT of the abdomen and pelvis was essentially unremarkable. The patient with a history of alcohol abuse. Urine tox screen was positive for cocaine. The patient had no prior history of heart problems. The patient was admitted with intractable nausea and vomiting with hematemesis, rule out GI bleeding and bradycardia, rule out conduction system disorder. HOSPITAL STAY: The patient was admitted to telemetry floor. Serial CBC were done. The patient was started on PPI. Cardiology consult was requested. Stool for occult blood was negative. Motor Vehicle Salesperson seen and evaluated the patient. The patient was on telemetry demonstrating Mobitz type 1 second-degree AV block. The patient was off all negative chronotropic agents. Prior to admission, the patient was on beta-sheron, which was stopped. Antiemetic provided as needed. The patient was able to tolerate diet. Orthostatic vital signs were negative. Echocardiogram revealed preserved ejection fraction of 55% to 60%, mild left ventricular hypertrophy, and right ventricular systolic pressure of 33. According to operations systems specialist during the tele monitoring, the patient still had infrequent Mobitz type 1, however he was asymptomatic. Patient will need to follow up with the operations systems specialist as outpatient. The patient was explained and counseled regarding this. Blood pressure was managed with the current regimen and was stable. As mentioned above, beta-sheron was stopped. The patient was counseled on abstinence from alcohol and illicit street drugs. Statin was continued. Pain management was provided. Hemoglobin and hematocrit remained stable throughout the stay. Supplemental oxygen provided as needed to keep pulse oximetry above 92%. Pulmonary toilet was on standby as needed. Prior to discharge, the patient was on room air. Pulse oximetry was stable. No signs of respiratory distress.The patient was stable for discharge. FINAL DIAGNOSES: 1. Intractable nausea and vomiting, resolved. 2. Mobitz type1, second-degree atrioventricular block. 3. Abdominal pain, resolved. 4. Hyperlipidemia. 5. Substance abuse, cocaine and alcohol. 6. Asthma history. DISCHARGE MEDICATIONS: See medication reconciliation list. DISCHARGE INSTRUCTIONS: The patient was discharged home. FOLLOWUP: Follow up with the primary medical doctor. Follow up with the operations systems specialist next week. Storm Carrillo M.D. I have been assigned to dictate discharge summary on this account and I was not involved in the patient's management. Nohemi RossiBrooke lane DR: MARIIA JOB#: [id number] CC: TRA
== END 2017-09-04 11:00 | disposition home or self-care (01) | DRG 201 ==
LOC: EDBD 10:19 → EMR 11:10 → INTOOBSV 14:44 → 2E 14:44 → EDBEDREQ 15:18 → 2E 09-02 00:29 → OBSVTOIN 09-02 08:09
DX: I44.1 Atrioventricular block, second degree (principal); I10 Essential (primary) hypertension; R11.2 Nausea with vomiting, unspecified; R10.9 Unspecified abdominal pain; K21.9 Gastro-esophageal reflux disease without esophagitis; E78.5 Hyperlipidemia, unspecified; F14.10 Cocaine abuse, uncomplicated; F10.10 Alcohol abuse, uncomplicated; J45.909 Unspecified asthma, uncomplicated; R00.1 Bradycardia, unspecified; Z86.718 Personal history of other venous thrombosis and embolism
CPT/HCPCS: 36415; 74177; 80053; 80307; 81003; 82270; 83690; 84443; 84484; 85025; 85610; 85730; 86850; 86900; 86901; 93005; 93306; 94760; 96360; 96361; 96374; 99285; J2405